=== PATIENT | male | born 2000 | race Caucasian/White ===

== ENCOUNTER 2022-03-10 19:10 | Emergency (ER) | payer OTHER ==
[~2022-03-10] VITALS: Ht 172.7 cm; Wt 72.6 kg
[2022-03-10 19:22] VITALS: BP_SYST 156
[2022-03-11] MEDS ORDERED: IBUP-1969 PO (00:14)
[2022-03-11] MEDS ORDERED: KETOROLAC TROMETHAMINE 60 MG/2 ML VIAL IM ONE (00:15)
[2022-03-11 00:27] VITALS: BP_SYST 133
== END 2022-03-11 00:27 | disposition home or self-care (01) ==
LOC: SED 19:10
DX: S00.33XA Contusion of nose, initial encounter (principal); M25.511 Pain in right shoulder; Z79.899 Other long term (current) drug therapy; V00.131A Fall from skateboard, initial encounter; Y93.89 Activity, other specified; Y92.89 Other specified places as the place of occurrence of the external cause; Y99.8 Other external cause status
CPT/HCPCS: 70160-TC; 73030; 99284; J1885